=== PATIENT | female | born 1945 | race Caucasian/White ===

== ENCOUNTER 2017-11-11 17:24 | Inpatient (IN) | payer MEDICARE, OTHER ==
[~2017-11-11] VITALS: Ht 170.2 cm; Wt 90.7 kg
[2017-11-11 17:35] VITALS: BP 123/35
[2017-11-11 17:57] LABS: ABSOLUTE BASOPHILS 0.1 thou/uL (0.0-0.2); ABSOLUTE EOSINOPHILS 0.1 thou/uL (0.0-0.7); ABSOLUTE LYMPHOCYTES 1.2 thou/uL (0.8-5.3); ABSOLUTE MONOCYTES 0.3 thou/uL (0.0-1.2); ABSOLUTE NEUTROPHILS 6.5 thou/uL (1.6-8.1); BASOPHILS 1.1 %; EOSINOPHILS 1.3 %; HEMATOCRIT 20.9 % (37.0-47.0); LYMPHOCYTES 14.9 %; MCH 23.7 pg (26.0-34.0); MCHC 29.5 g/dL (28.0-37.0); MCV 80.1 fL (80.0-100.0); MONOCYTES 4.1 %; MPV 8.9 fl. (7.2-11.1); NUCLEATED RBCS 0 /100WBC; PLATELET COUNT* 226 thou/uL (150-400); POLYS 78.6 %; RDW-CV 18.1 % (10.5-14.5); WBC 8.2 thou/uL (4.0-11.0)
[2017-11-11 18:00] LABS: HEMOGLOBIN 6.2 gm/dL (12.0-15.0)
[2017-11-11 18:11] LABS: ANION GAP 7 mmol/L (7-16); BUN 21 mg/dL (7-18); CALCIUM 8.2 mg/dL (8.5-10.1); CHLORIDE 103 mmol/L (98-107); CO2 27 mmol/L (21-32); CREATININE 1.3 mg/dL (0.6-1.3); GLUCOSE 190 mg/dL (70-99); POTASSIUM 4.4 mmol/L (3.5-5.1); SODIUM 137 mmol/L (136-145)
[2017-11-11 18:14] LABS: APTT 25.2 Seconds (25.0-31.3); INR 1.1; PROTIME 11.1 Seconds (9.20-11.50)
[2017-11-11] MEDS ORDERED: LISINOPRIL10 MG PO (18:17)
[2017-11-11] MEDS ORDERED: ARICEPT10 M1 PO (18:17)
[2017-11-11] MEDS ORDERED: NAMENDA 10 MG T10 MG PO (18:18)
[2017-11-11] MEDS ORDERED: GLUCOPHAGE XR500 MG PO (18:19)
[2017-11-11] MEDS ORDERED: ASPIRIN81 M2 PO (18:20)
[2017-11-11] MEDS ORDERED: RESTORIL30 MG PO (18:20)
[2017-11-11 18:22] LABS: ALBUMIN 2.5 g/dL (3.4-5.0); ALKALINE PHOSPHATASE 64 U/L (46-116); NT-PRO BRAIN NAT PEPTIDE 289 pg/mL (<300); SGOT 16 U/L (15-37); SGPT 17 U/L (30-65); TOTAL BILIRUBIN 0.4 mg/dL (<0.1-1.0); TOTAL PROTEIN 6.7 g/dL (6.4-8.2); TROPONIN-I LEVEL <0.06 ng/mL (<0.06)
[2017-11-11 20:41] VITALS: BP 137/55
[2017-11-11 22:25] VITALS: BP 133/47; BP 139/52; BP 161/57
[2017-11-12] MEDS ORDERED: FISH OIL 1,001000 M2 PO (00:05)
[2017-11-12] MEDS ORDERED: PIOGLITAZONE15 MG PO (00:07)
[2017-11-12] MEDS ORDERED: FLEXERIL PO ×2 (00:09→00:10)
[2017-11-12 02:26] LABS: HEMATOCRIT 21.2 % (37.0-47.0)
[2017-11-12 02:53] LABS: MCHC 30.7 g/dL (28.0-37.0); MCV 81.6 fL (80.0-100.0); MPV 9.3 fl. (7.2-11.1); RBC 2.57 mil/uL (4.20-5.00)
[2017-11-12 02:56] LABS: CALCIUM 7.7 mg/dL (8.5-10.1); CREATININE 1.1 mg/dL (0.6-1.3); MAGNESIUM 1.6 mg/dL (1.8-2.4); POTASSIUM 4.1 mmol/L (3.5-5.1)
[2017-11-12 03:01] LABS: HEMOGLOBIN 6.4 gm/dL (12.0-15.0)
[2017-11-12 03:02] LABS: HEMOGLOBIN 6.4 gm/dL (12.0-15.0)
[2017-11-12 04:00] VITALS: BP 133/52
[2017-11-12 04:21] VITALS: BP 139/52; BP 146/57; BP 150/57; BP 157/63
[2017-11-12 08:00] VITALS: BP 147/46
[2017-11-12 08:32] LABS: HEMATOCRIT 25.4 % (37.0-47.0); HEMOGLOBIN 7.9 gm/dL (12.0-15.0)
--- NOTE | 2017-11-12 10:03 | EKG ---
[place] [address] ELECTROCARDIOGRAM REPORT Name: KAVON MARIA Room: [address] IN [facility]#: [id number] Admission: 11/11/17 Attend Phys: Ruth Milan MD Discharge: Date of : 49 Report #: [id number] THIS REPORT FOR: //name// [facility] ED Test Date: 2017-11-11 Test Time: 17:41:13 Pat Name: KAVON MARIA Department: Room: [facility] Gender: F Maintenance Machinist: Elliott KAUR : 1945 Requested By: Mami Umanzor Order Number: [id number] MD: Keaton Lloyd Measurements Intervals [place] Rate: 70 P: -23 IL: 127 QRS: 20 QRSD: 108 T: 101 QT: 412 QTc: 445 Interpretive Statements Sinus rhythm Nonspecific T abnormalities, lateral leads No previous ECG available for comparison Electronically Signed On 11-12-2017 10:03:15 CDT by Keaton Lloyd [email or web address] <ELECTRONICALLY SIGNED> By: Keaton Lloyd MD, [facility] 11/12/17 1003 [id number] Keaton Lloyd MD, [facility] /EPI
[2017-11-12 11:36] VITALS: BP 144/50
[2017-11-12 15:37] VITALS: BP 168/50
[2017-11-12 20:00] VITALS: BP 153/67
[2017-11-13] VITALS: BP 176/51
[2017-11-13 04:00] VITALS: BP 151/51
[2017-11-13 07:42] LABS: ABSOLUTE BASOPHILS 0.1 thou/uL (0.0-0.2); ABSOLUTE EOSINOPHILS 0.6 thou/uL (0.0-0.7); ABSOLUTE MONOCYTES 0.6 thou/uL (0.0-1.2); ABSOLUTE NEUTROPHILS 5.5 thou/uL (1.6-8.1); EOSINOPHILS 6.1 %; HEMATOCRIT 27.8 % (37.0-47.0); HEMOGLOBIN 8.8 gm/dL (12.0-15.0); LYMPHOCYTES 30.7 %; MCH 26.2 pg (26.0-34.0); MCHC 31.9 g/dL (28.0-37.0); MCV 82.3 fL (80.0-100.0); MONOCYTES 6.6 %; MPV 9.2 fl. (7.2-11.1); NUCLEATED RBCS 0 /100WBC; PLATELET COUNT* 215 thou/uL (150-400); POLYS 55.6 %; RBC 3.37 mil/uL (4.20-5.00); WBC 9.8 thou/uL (4.0-11.0)
[2017-11-13 07:57] LABS: CALCIUM 8.4 mg/dL (8.5-10.1); CREATININE 1.1 mg/dL (0.6-1.3); POTASSIUM 4.6 mmol/L (3.5-5.1)
[2017-11-13 08:00] VITALS: BP 151/51
[2017-11-13 17:14] VITALS: BP 153/59
[2017-11-13 20:00] VITALS: BP 132/62
[2017-11-14 04:00] VITALS: BP 159/55
[2017-11-14 05:18] LABS: HEMATOCRIT 25.1 % (37.0-47.0); HEMOGLOBIN 7.8 gm/dL (12.0-15.0); MCH 25.7 pg (26.0-34.0); MCHC 30.9 g/dL (28.0-37.0); MPV 9.1 fl. (7.2-11.1); RBC 3.02 mil/uL (4.20-5.00); WBC 6.4 thou/uL (4.0-11.0)
[2017-11-14 10:12] LABS: HEMOGLOBIN 8.2 gm/dL (12.0-15.0); MCH 26.1 pg (26.0-34.0); MCHC 31.6 g/dL (28.0-37.0); MCV 82.6 fL (80.0-100.0); MPV 8.4 fl. (7.2-11.1); RBC 3.15 mil/uL (4.20-5.00); RDW-CV 18.3 % (10.5-14.5); WBC 7.2 thou/uL (4.0-11.0)
[2017-11-14] MEDS ORDERED: METFORMIN HCL500 MG PO (10:49)
[2017-11-14] MEDS ORDERED: PRAVACHOL40 MG PO (10:49)
[2017-11-14 10:58] VITALS: BP 137/42
--- NOTE | 2017-11-27 13:22 | CON ---
[address] [address] CONSULTATION Name: KAVON MARIA Room: [address]#: [id number] Admission: 11/11/17 Attend Phys: Ruth Milan MD Discharge: 11/14/17 Date of : 49 Report #: [id number] THIS REPORT FOR: //name// CC: [facility] physician/PCP Ruth Milan HISTORY OF PRESENT ILLNESS: The patient is a pleasant 72-year-old female with past medical history significant for hypertension, diabetes, and hyperlipidemia and chronic iron deficiency anemia who presented to the hospital with progressive weakness and dyspnea on exertion. The patient reported that she went to the rehab with her friend who had broken her arm and at that time found it very difficult to walk across the room and therefore she presented to the hospital. The patient reports that she has had iron deficiency anemia in the past, but denies any significant change in her bowel habits. The patient also denies any abdominal pain, nausea, vomiting, diarrhea, fevers, chills or weight loss. The patient reports chronic fatigue and reports that she has been placed on p.o. prednisone for this. However, she denies any significant use of antithrombotic agents or NSAIDs. Her last EGD or colonoscopy were about 4 years back. PAST MEDICAL HISTORY: As mentioned above, the patient has a history of hypertension, diabetes, hyperlipidemia, and iron deficiency anemia. PAST SURGICAL HISTORY: Not significant. FAMILY HISTORY: No family history of colorectal cancer. SOCIAL HISTORY: The patient quit smoking 15 years back. Denies any significant alcohol use. The patient does report smoking marijuana intermittently. REVIEW OF SYSTEMS: Positive for fatigue, dyspnea on exertion, and dizziness. Otherwise, a comprehensive 10-point review of systems is negative. PHYSICAL EXAMINATION: VITAL SIGNS: Blood pressure 37.0, pulse 78, respirations 18, blood pressure 168/50, pulse ox 98% on room air. GENERAL: The patient is alert, awake, oriented x 3. Mucous membranes are moist. HEENT: Pupils are equal, round, reactive to light and accommodation. NECK: Supple. There is no supraclavicular lymphadenopathy. CHEST: Clear to auscultation. CARDIOVASCULAR: Rate and rhythm regular, S1, S2 present. ABDOMEN: Abdomen is soft, nondistended, nontender. No organomegaly or guarding. EXTREMITIES: Warm and well perfused. There is no edema. SKIN: [place] [address] CONSULTATION Name: MARIAKAVON Room: [address]#: [id number] Admission: 11/11/17 Attend Phys: Ruth Milan MD Discharge: 11/14/17 Date of : 49 Report #: [id number] LABORATORY DATA: Hemoglobin 6.4, hematocrit 21.2, WBC count 7, platelets 157. INR 1.1. Sodium 140, potassium 4.1, chloride 107, bicarbonate 28, BUN 19, creatinine 1.1, calcium 7.7, magnesium 1.6, iron 19, iron saturation 4%, TIBC 439, AST 16, ALT 17, alkaline phosphatase 64, B12 382, folate 9.6. ASSESSMENT AND PLAN: 1. This is a very pleasant 72-year-old female with past medical history significant for diabetes, hypertension, hyperlipidemia and iron deficiency anemia who presented to the hospital with progressive weakness and dyspnea on exertion. 2. Iron deficiency anemia without overt gastrointestinal bleeding/obscure gastrointestinal hemorrhage. 3. An esophagogastroduodenoscopy and colonoscopy are warranted for further evaluation. These will be scheduled for tomorrow. Further recommendations will be based on the results of the endoscopy. <ELECTRONICALLY SIGNED> By: Simon Brumfield MD 11/27/17 1322 1721 [id number] Brumfield MD /nt
== END 2017-11-14 11:05 | disposition home or self-care (01) | DRG 378 ==
LOC: M.ERS 17:24 → M.TBA-ER 19:22 → M.2W 19:26
PROVIDERS: Internal Medicine; Nurse Practitioner Family; ADMIT Internal Medicine
PROC: 30233N1 Transfusion of Nonautologous Red Blood Cells into Peripheral Vein, Percutaneous Approach (ICD-10-PCS; principal; 2017-11-11)
PROC: 0DJ08ZZ Inspection of Upper Intestinal Tract, Via Natural or Artificial Opening Endoscopic (ICD-10-PCS; 2017-11-13)
PROC: 0DJD8ZZ Inspection of Lower Intestinal Tract, Via Natural or Artificial Opening Endoscopic (ICD-10-PCS; 2017-11-13)
DX: K57.31 Diverticulosis of large intestine without perforation or abscess with bleeding (principal); D62 Acute posthemorrhagic anemia; E44.1 Mild protein-calorie malnutrition; D50.9 Iron deficiency anemia, unspecified; E11.9 Type 2 diabetes mellitus without complications; F12.10 Cannabis abuse, uncomplicated; I10 Essential (primary) hypertension; E78.5 Hyperlipidemia, unspecified; F03.90 Unspecified dementia, unspecified severity, without behavioral disturbance, psychotic disturbance, mood disturbance, and anxiety; K74.60 Unspecified cirrhosis of liver; E66.9 Obesity, unspecified; J44.9 Chronic obstructive pulmonary disease, unspecified; Z86.73 Personal history of transient ischemic attack (TIA), and cerebral infarction without residual deficits; Z87.11 Personal history of peptic ulcer disease; Z79.899 Other long term (current) drug therapy; Z79.51 Long term (current) use of inhaled steroids; Z88.6 Allergy status to analgesic agent; Z87.891 Personal history of nicotine dependence; Z79.82 Long term (current) use of aspirin; Z68.31 Body mass index [BMI] 31.0-31.9, adult